=== PATIENT | female | born 1980 | race Caucasian/White ===

== ENCOUNTER 2016-08-29 17:24 | Inpatient (IN) | payer BC, OTHER ==
[~2016-08-29] VITALS: Ht 165.1 cm; Wt 72.6 kg
[2016-08-29] MEDS ORDERED: MIRALAX 17 GM POWD.PACK PO PRN (21:15)
[2016-08-29] MEDS ORDERED: ACETAMINOPHEN 325 MG TABLET PO PRN (21:15)
[2016-08-29] MEDS ORDERED: METHOCARBAMOL 750 MG TABLET PO PRN (21:15)
[2016-08-29] MEDS ORDERED: MAG HYDROX/AL HYDROX/SIMETH 30 ML LIQUID UDC PO PRN (21:15)
[2016-08-29] MEDS ORDERED: LOPERAMIDE HCL 2 MG CAPSULE PO PRN ×2 (21:15)
[2016-08-29] MEDS ORDERED: DICYCLOMINE HCL 20 MG TABLET PO PRN (21:15)
[2016-08-29] MEDS ORDERED: BUPRENORPHINE HCL 2 MG TAB.SUBL SL PRN (21:15)
[2016-08-29] MEDS ORDERED: ONDANSETRON 4 MG/2 ML VIAL IM PRN (21:15)
[2016-08-29] MEDS ORDERED: ONDANSETRON ODT 4 MG TAB.RAPDIS SL PRN (21:15)
[2016-08-29] MEDS ORDERED: MAGNESIUM HYDROXIDE 30 ML LIQUID UDC PO PRN (21:15)
[2016-08-29] MEDS ORDERED: diphenhydrAMINE 50 MG CAPSULE PO PRN (21:15)
[2016-08-29 21:30] VITALS: BP 116/56
--- NOTE | 2016-08-29 21:30 | NUR ---
PRE-ADMISSION NOTE PATIENT SEEN IN INTAKE. PATIENT ALERT AND ORIENTED X 4. VS BP-116/56 T-8.2 P-75 R-17 PA-0/10 SpO2 97% ON RA. PATIENT AMBULATORY WITH STEADY GAIT AND NO ALLERGY TO FOOD OR MEDICATIONS. ABLE TO ANSWERS QUESTIONS. WILL CONTINUE ADMISSION PROCESS
--- NOTE | 2016-08-29 21:34 | NUR ---
ADMISSION NOTE RECEIVED PATIENT IN THE UNIT AT THIS TIME. PATIENT IS A 35 YEAR OLD FEMALE WHO PRESENTS AT [facility] FOR ETOH/OPIATE/METH DEPENDENCE. HEIGHT IS 5'5 AND WEIGHT IS 160 LBS. RESPIRATION EVEN AND UNLABORED. LUNGS CLEAR AND BOWEL SOUNDS ACTIVE ON ALL 4 QUADRANT. ABDOMEN SOFT AND NON-DISTENDED. BODY CHECK DONE. SKIN INTACT. PATIENT NOTED WITH NON-PITTING EDEMA ON RIGHT LOWER LEG. PATIENT STATES SHE INJECTS HERSELF ON THAT AREA. LAST MENSTRUATION PERIOD WAS 2 WEEKS AGO. PATIENT REQUESTED TO BE FULL CODE AND REGULAR DIET. PATIENT STATES SHE RELAPSED A MONTH AGO. 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 PATIENT IS THE SOURCE OF INFORMATION. PATIENT S DRUG OF CHOICE ARE FF: 1.ALCOHOL (VODKA) SINCE AGE 12. DRINKS 8 SHOTS DAILY FOR A MONTH. LAST DRINK WAS 2 SHOTS ON 08/29/16 2.HEROIN IV-SINCE AGE 18. INJECTS 1 GRAM DAILY FOR A MONTH. LAST USE WAS 0.3 GRAM ON 08/29/16 3.METH IV-SINCE AGE 14.INJECTS GRAM DAILY FOR A MONTH. LAST USE WAS 0.1 GRAM ON 08/29/16 TREATMENT HISTORY 1.A STEP IN THE RIGHT DIRECTION IN [place]- A MONTH AGO-STAYED FOR 2 WEEKS 2.[facility] MAY 2016-STAYED FOR 9 DAYS PATIENT DOES NOT HAVE PCP. SHE STATES SHE SEES PSYCHIATRIST DR. VEGA. PATIENT REPORTS PMH OF DEPRESSION WHICH SHE TAKES ZOLOFT AND BIPOLAR WHICH SHE TAKES SEROQUEL. NO SEIZURE HISTORY. HER LONGEST PERIOD OF SOBRIETY IS 9 MONTHS , 2 YEARS AGO. PATIENT SMOKES PACK DAILY BUT SMOKES MORE WHEN IN TREATMENT. PATIENT BROUGHT HOME MEDICATION-RECONCILED. PATIENT BROUGHT AMOXICILLIN BUT STATES THAT IT'S AN OLD PRESCRIPTION FOR HER SINUS INFECTION. PATIENT APPEARS TO BE ANXIOUS AND NOTED YAWNING. PATIENT STATES NO N/V , NO TREMORS, NO SWEATING AT THIS TIME. COWS 2 AND CIWA 1. PATIENT IS PLACED ON FALL/SEIZURE PRECAUTION. WILL CALL MD AND WILL GIVE DETAIL REPORT. PATIENT ORIENTED TO SURROUNDINGS AND HOW TO USE CALL LIGHT. SAFETY MEASURES IN PLACE. CALL LIGHT IN REACH. WILL CONTINUE TO MONITOR.
[2016-08-29 21:48] LABS: *URINE HCG, QUAL NEGATIVE (NEGATIVE)
[2016-08-29 21:53] LABS: *AMPHETAMINE, URINE POSITIVE (NEGATIVE); *BARBITURATE, URINE NEGATIVE (NEGATIVE); *CANNABINOID, URINE NEGATIVE (NEGATIVE); *COCCAINE, URINE NEGATIVE (NEGATIVE); *OPIATE, URINE NEGATIVE (NEGATIVE); *PHENCYCLIDINE SCREEN,URINE NEGATIVE (NEGATIVE)
--- NOTE | 2016-08-29 22:55 | NUR ---
PRN BENADRYL ADMINISTRATION PATIENT REQUESTS FOR SLEEP AID. PRN BENADRYL GIVEN. WILL MONITOR FOR EFFECTIVENESS.
[2016-08-29] MEDS ORDERED: diphenhydrAMINE 50 MG CAPSULE ONE (23:04)
[2016-08-29] MEDS ORDERED: QUET200T PO (23:28)
[2016-08-29] MEDS ORDERED: SERT100T12 PO (23:28)
[2016-08-29] MEDS ORDERED: AMOX875T2 PO (23:28)
[2016-08-29] MEDS ORDERED: IBUP-1482 PO (23:28)
[2016-08-29 23:45] LABS: BASOPHILS # (AUTO) 0.1 K/uL (0.0-8.0); BASOPHILS % (AUTO) 1.1 % (0.0-2.0); EOSINOPHILS # (AUTO) 0.2 K/uL (0.0-0.7); EOSINOPHILS % (AUTO) 4.3 % (0.0-7.0); HEMATOCRIT 34.6 % (37-47); HEMOGLOBIN 11.6 G/DL (12.0-16.0); LYMPHOCYTES # (AUTO) 1.6 K/UL (0.8-4.8); LYMPHOCYTES % (AUTO) 33.6 % (20.5-51.5); MEAN CORPUSCULAR HEMOGLOBIN 29.3 UUG (27.0-31.0); MEAN CORPUSCULAR HGB CONC 34 g/dL (32.0-37.0); MEAN CORPUSCULAR VOLUME 87.3 FL (81.0-99.0); MONOCYTES # (AUTO) 0.4 K/UL (0.1-1.30); MONOCYTES % (AUTO) 7.7 % (0.0-11.0); NEUTROPHILS # (AUTO) 2.6 K/UL (1.8-8.9); NEUTROPHILS % (AUTO) 53.3 % (38.5-71.5); PLATELET COUNT (AUTO) 175 K/UL (150-450); RED BLOOD CELL COUNT(AUTO) 3.96 MIL/UL (4.2-5.4); WHITE BLOOD COUNT (AUTO) 4.9 K/UL (4.0-11.2)
[2016-08-29] MEDS ORDERED: LORAZEPAM 1 MG TABLET PO PRN ×2 (23:45)
[2016-08-29 23:47] LABS: ETHANOL < 3 MG/DL (0-0)
[2016-08-29 23:54] LABS: ALANINE AMINOTRANSFERASE 37 U/L (14-59); ALKALINE PHOSPHATASE 52 U/L (50-136); ASPARTATE AMINOTRANSFERASE 23 U/L (15-37); BILIRUBIN,TOTAL 0.2 mg/dL (0.2-1.0); CARBON DIOXIDE 30 mmol/L (21-32); CHLORIDE 107 mmol/L (98-107); GLUCOSE 112 mg/dL (74-106); MAGNESIUM 1.7 mg/dL (1.8-2.4); POTASSIUM 3.9 mmol/L (3.5-5.1); TOTAL PROTEIN, SERUM 7.1 g/dL (6.4-8.2); UREA NITROGEN, BLOOD 15 mg/dL (7-18)
--- NOTE | 2016-08-29 23:55 | NUR ---
DELVIS BENTON RE-ASSESSMENT PATIENT IN BED ASLEEP. RESPIRATION EVEN AND UNLABORED. NO S/S OF DISTRESS. SAFETY MEASURES IN PLACE. CALL LIGHT IN REACH. WILL CONTINUE TO MONITOR.
[2016-08-30] VITALS: BP 98/52
[2016-08-30] LABS: THYROID STIMULATING HORMONE 1.329 mIU/mL (0.358-3.740)
[2016-08-30] MEDS ORDERED: LORAZEPAM 2 MG/1 ML VIAL IM PRN (02:00)
[2016-08-30 04:00] VITALS: BP 100/52
--- NOTE | 2016-08-30 07:11 | NUR ---
END OF SHIFT NOTE PATIENT IS A 35 YEAR OLD FEMALE WHO PRESENTS AT [facility] FOR ETOH/OPIATE/METH DEPENDENCE. PRN ATIVAN/SUBUTEX AVAILABLE. SKIN INTACT. PATIENT NOTED WITH NON-PITTING EDEMA ON RIGHT LOWER LEG. PATIENT STATES SHE INJECTS HERSELF ON THAT AREA .PATIENT IS FULL CODE ,REGULAR DIET AND NO KNOWN ALLERGY. PATIENT STATES SHE RELAPSED A MONTH AGO. PATIENT S DRUG OF CHOICE ARE FF: 1.ALCOHOL (VODKA) SINCE AGE 12. DRINKS 8 SHOTS DAILY FOR A MONTH. LAST DRINK WAS 2 SHOTS ON 08/29/16 2.HEROIN IV-SINCE AGE 18. INJECTS 1 GRAM DAILY FOR A MONTH. LAST USE WAS 0.3 GRAM ON 08/29/16 3.METH IV-SINCE AGE 14.INJECTS GRAM DAILY FOR A MONTH. LAST USE WAS 0.1 GRAM ON 08/29/16 PATIENT DENIES ANY PAIN. PATIENT ANXIOUS AND NOTED YAWNING UPON ADMISSION . PATIENT COOPERATIVE. PATIENT IS PLACED ON FALL/SEIZURE PRECAUTION. SAFETY MEASURES IN PLACE. CALL LIGHT IN REACH. WILL CONTINUE TO MONITOR. PATIENT WAS GIVEN PRN BENADRYL FOR SLEEP. SLEPT 7 HOURS. FLUID INTAKE 1,156 ML. VOIDED X 3 . NO BM. LAST COWS 2 AND CIWA 1 .
--- NOTE | 2016-08-30 07:12 | NUR ---
Start of Shift Notes: Received patient in her room. Alert and verbally responsive. Oriented x 4. Able to make needs known. Respirations even and unlabored. No SOB noted. Skin warm and dry to touch. Abdomen soft and non-distended with (+) BS in all 4 quadrants. No complains of N/V/D or constipation noted. Voids independently. No complains of dysuria. Ambulatory ad ash with steady gait. Patient is a 35 year old female admitted for ETOH, and opiate dependence who was placed on PRNs at this time. Has past medical hx of depression and bipolar disorder. NKA. FULL CODE. Regular diet. On fall and seizure precautions. Educated patient on her current plan of care for the day and her medication regimen. Encouraged oral fluid intake and encouraged group participation to learn new skills to prevent relapse. Will continue to monitor closely.
[2016-08-30 08:00] VITALS: BP 109/55
[2016-08-30] MEDS: MULTIVITAMINS,THERAPEUTIC TABLET PO SCH (08:21)
--- NOTE | 2016-08-30 08:37 | NUR ---
TB not administered: Patient refused TB test at this time. Per patient, she just had one done last week. Education was provided. Notified MD Ann. Per , OK to do CXR for med clearance for active TB. Orders noted and carried out.
[2016-08-30] MEDS ORDERED: MAGNESIUM OXIDE 400 MG TABLET PO ONE (09:00)
[2016-08-30] MEDS ORDERED: TUBERCULIN,PURIF.PROT.DERIV. 5 TU/0.1 ML TEST ID ONE ×2 (09:00)
[2016-08-30] MEDS ORDERED: THIAMINE HCL 200 MG/2 ML VIAL IM ONE (09:00)
[2016-08-30] MEDS ORDERED: PNEUMOCOCCAL 23-VAL P-SAC VAC 0.5 ML VIAL IM ONE (09:00)
[2016-08-30] MEDS: SERTRALINE HCL 100 MG TABLET PO SCH (10:25)
[2016-08-30 12:00] VITALS: BP 98/47
--- NOTE | 2016-08-30 14:13 | NUR ---
Clinician encouraged client to attend groups today and advised client that this typewriter mechanic does a group at 3:30 today. Client responded that she would do her best to attend but she felt very tired.
--- NOTE | 2016-08-30 14:50 | NUR ---
Mid Shift Notes: Patient is in group. Denies any anxiety, chills, hot flashes, nervousness, muscle aches and pains. Offered support.
[2016-08-30 16:00] VITALS: BP 131/76
[2016-08-30] MEDS: HYDROXYZINE PAMOATE 25 MG CAPSULE PO PRN (17:17)
[2016-08-30] MEDS: CLONIDINE HCL 0.1 MG TABLET PO PRN (17:17)
--- NOTE | 2016-08-30 17:18 | NUR ---
Clonidine 0.1mg PO and Vistaril 25 mg PO given: COWS 5/CIWA 4. Patient presented with tremors, barely sweats, and anxiety. Medicated patient with Clonidine 0.1mg PO, and Vistaril 25 mg PO as ordered. Will monitor for effectiveness.
--- NOTE | 2016-08-30 18:18 | NUR ---
Re-assessment: Per patient, PRN Clonidine and Vistaril were effective in reducing anxiety, tremors, chills and hot flashes.
--- NOTE | 2016-08-30 18:41 | NUR ---
End of Shift Notes: Patient is a 35 year old female admitted for ETOH, and opiate dependence who was placed on PRNs at this time. Has past medical hx of depression and bipolar disorder. NKA. FULL CODE. Regular diet. On fall and seizure precautions. Prior to admission, patient was using 8 shots of Vodka daily, 1 and grams of Heroin IV and gram of meth IV. VS monitored closely q 4 hours. No significant abnormalities noted. Withdrawal symptoms were closely monitored. COWS 0, CIWA 0. Denies any complains of chills, hot flashes, muscle aches and pains, anxiety and agitation. No N/V, diarrhea or abdominal cramping noted. Per patient, she is not ready to be started on Subutex at this time, however, she also states that she is expecting to show withdrawal symptoms tonight. Last COWS 5, CIWA 4 due to tremors, anxiety and sweating. Medicated patient with Clonidine 0.1mg and Vistaril 25 mg PO as ordered with help after 1 hour. Participated in group. Complains of fatigue due to lack of sleep. Seen and examined by Dr. Ann, per MD, continue to monitor the patient q 4 hours and PRN. Seen and examined by Dr. Sinclair with NO, and reconciled patients Seroquel and Zoloft. Oral fluids encouraged. Compliant with care and treatment. PNA vaccine given to right deltoid. No adverse reactions noted. No bleeding noted on the injection site. Intake 2000cc, Voided x 6, BM x 1. All needs met and attended. Will continue to monitor closely.
--- NOTE | 2016-08-30 19:30 | NUR ---
START OF SHIFT Patient is a 35 year old female admitted for ETOH, and opiate dependency.A/O X 4,ambulates with a steady gait. PMH of depression and bipolar disorder. NKA. FULL CODE. Regular diet. On fall and seizure precautions. Last COWS 5, CIWA 4 . PO fluids encouraged as tolerated. Pt is compliant with care and treatment. All needs met and attended.All safety measures in place,bed locked in the lowest position,side rails up x 2,call light within reach. Will continue to monitor closely.
[2016-08-30 20:00] VITALS: BP 112/58
[2016-08-30] MEDS: QUETIAPINE FUMARATE 200 MG TABLET PO SCH (21:04)
[2016-08-31] VITALS: BP 91/44
[2016-08-31 04:00] VITALS: BP 100/48
--- NOTE | 2016-08-31 06:44 | NUR ---
END OF SHIFT Patient is a 35 year old female admitted for ETOH, and opiate dependency.A/O X 4,ambulates with a steady gait. PMH of depression and bipolar disorder. NKA. FULL CODE. Regular diet. On fall and seizure precautions. Last COWS 1, CIWA 1 . PO fluids encouraged as tolerated. Pt is compliant with care and treatment. No PRN meds given;slept 9 hrs,.fluid intake was 1000mls,voided x 1. All needs met and attended.All safety measures in place,bed locked in the lowest position,side rails up x 2,call light within reach. Will continue to monitor closely.
[2016-08-31 08:00] VITALS: BP 99/53
[2016-08-31] MEDS: MULTIVITAMINS,THERAPEUTIC TABLET PO SCH (09:04)
[2016-08-31] MEDS: THIAMINE HCL 100 MG TABLET PO SCH (09:04)
[2016-08-31] MEDS: CLONIDINE HCL 0.1 MG TABLET PO PRN ×2 (09:04→17:42)
[2016-08-31] MEDS: SERTRALINE HCL 100 MG TABLET PO SCH (09:04)
[2016-08-31] MEDS: FOLIC ACID 1 MG TABLET PO SCH (09:04)
[2016-08-31] MEDS: HYDROXYZINE PAMOATE 25 MG CAPSULE PO PRN (09:04)
--- NOTE | 2016-08-31 09:04 | NUR ---
Clonidine 0.1mg PO and Vistaril 25 mg PO given: Patient noted with complains of chills, hot flashes, tremors felt but not observed. Also noted with complain of anxiety. COWS 5, CIWA 4. Encouraged patient to start her taper but patient states that she is still not ready. Notified MD. Clonidine and Vistaril were given as ordered. Will monitor for effectiveness.
--- NOTE | 2016-08-31 09:57 | NUR ---
MD Communication: After MD spoke to patient, MD Ann will place the patient on a 3-day Subutex taper and PRN Ativan per CIWA score. Patient was informed and educated.
[2016-08-31] MEDS ORDERED: LORAZEPAM 1 MG TABLET PO PRN (10:00)
--- NOTE | 2016-08-31 10:04 | NUR ---
Re-assessment: Per patient, PRN Clonidine and Vistaril were minimally effective in reducing patient's anxiety, sweats, chills and hot flashes. MD Cervantes aware. Patient will be started on a 3-day Subutex taper. COWS 14/CIWA 9.
[2016-08-31] MEDS: BUPRENORPHINE HCL 2 MG TAB.SUBL SL SCH ×2 (10:14→20:28)
[2016-08-31] MEDS: LORAZEPAM 1 MG TABLET PO PRN ×2 (10:14→17:42)
--- NOTE | 2016-08-31 10:16 | NUR ---
PRN Ativan 1 mg PO given: Patient's CIWA 9. COWS 14. Medicated patient with PRN Ativan 1 mg PO per CIWA score of 9. First dose of 3-day Subutex taper initiated at this time.
--- NOTE | 2016-08-31 11:16 | NUR ---
Re-assessment: DAISY 4. Ativan 1 mg PO was effective in reducing patient's withdrawal symptoms.
[2016-08-31 12:00] VITALS: BP 110/62
[2016-08-31 14:09] LABS: HEPATITIS B SURFACE AG Negative (Negative)
[2016-08-31 16:00] VITALS: BP 107/59
[2016-08-31] MEDS: IBUPROFEN 600 MG TABLET PO PRN (17:42)
--- NOTE | 2016-08-31 17:44 | NUR ---
PRN Clonidine/Robaxin/Motrin and Ativan 1 mg PO given: CIWA 10. Patient presented with increase in anxiety, and increase in agitation. Complains of muscle aches and headache 11/03. Patient noted with sweating and facial flushing. Medicated patient with Ativan 1 mg PO, Clonidine 0.1mg PO, Robaxin 750mg PO and Motrin 400 mg PO as ordered. Will monitor for effectiveness.
--- NOTE | 2016-08-31 18:44 | NUR ---
Re-assessment: CIWA 5. Less anxiety and agitation noted. Less tremors noted. PL 3/10. PRN Robaxin, Clonidine, Motrin and Ativan PO were effective.
--- NOTE | 2016-08-31 18:45 | NUR ---
End of Shift Notes: Patient is a 35 year old female admitted for ETOH, and opiate dependence who was placed on a modified 3-day Subutex and PRN Ativan. Initial dose started at 1000 today. No adverse reactions noted. Has past medical hx of depression and bipolar disorder. NKA. FULL CODE. Regular diet. On fall and seizure precautions. Prior to admission, patient was using 8 shots of Vodka daily, 1 and grams of Heroin IV and gram of meth IV. VS monitored closely q 4 hours. No significant abnormalities noted. Withdrawal symptoms were closely monitored. COWS 14, CIWA 9 patient presented with chills, sweating, anxiety gross tremors, goose bumps, fatigue, hot flashes, anxiety and agitation. Last COWS 3, CIWA 5 . Medicated patient with Clonidine 0.1mg and Vistaril 25 mg PO as ordered at 0904 with minimal help after 1 hour. PRN Clonidine, Robaxin, Ativan and Motrin were given at 1742 due to CIWA 10 with complains of increased anxiety, agitation, headache and muscle aches with help after 1 hour. Unable to participate in group due to her withdrawal symptoms. Seen and examined by Dr. Ann and started patient on PRN Ativan and 3-day Subutex taper as ordered. Oral fluids encouraged. Compliant with care and treatment. All needs met and attended. 1500cc intake, void x 5, BM x 1. Will continue to monitor closely.
[2016-08-31 20:00] VITALS: BP 99/65
--- NOTE | 2016-08-31 20:00 | NUR ---
Start of Shift Note: Report received from day shift nurse. Pt is a 35yo female admitted on 08/29/16 for medically-supervised withdrawal from ETOH, opiates, and methamphetamine. Pt reports using 1.5gm IV heroin, drinking 8 shots vodka, and using 0.5gm IV methamphetamine daily for one month. Pt is on a 3-day Subutex taper, with PRN Ativan available for elevated CIWA score. Pt received with last COWS=4, CIWA=4, and PRN's Ativan x2, Clonidine x2, Motrin, Robaxin, and Vistaril were given during day shift. Full code, NKDA/NKFA, regular diet. Pt reports PMHx: depression, bipolar DO. Pt received in room, noted to be guarded and diaphoretic; pt reports generalized pain and anxiety. Bed is in low position and locked, side rails up x2, call light within reach. Will continue to monitor.
[2016-08-31] MEDS: QUETIAPINE FUMARATE 200 MG TABLET PO SCH (20:29)
[2016-08-31] MEDS: DICYCLOMINE HCL 20 MG TABLET PO SCH (20:29)
[2016-08-31] MEDS: BACLOFEN 10 MG TABLET PO SCH (20:29)
[2016-09-01] VITALS: BP 107/59
--- NOTE | 2016-09-01 | NUR ---
COWS/CIWA Deferred: COWS and CIWA deferred for sleep. V/S stable. All safety precautions are in place. Will continue to monitor. Addendum: 09/01/16 at 0222 by JASWINDER ALEXANDER RN Amended: Links added.
[2016-09-01 04:00] VITALS: BP 98/64
--- NOTE | 2016-09-01 04:00 | NUR ---
COWS/CIWA Deferred: COWS/CIWA assessment deferred for sleep. V/S stable. All safety precautions are in place. Will continue to monitor. Addendum: 09/01/16 at 0519 by JASWINDER ALEXANDER RN Amended: Links added.
--- NOTE | 2016-09-01 06:50 | NUR ---
End of Shift Note: Pt is a 35yo female admitted to [facility] on 08/29/16 for medically-supervised withdrawal from ETOH, opiates, and methamphetamine. Pt reports PMHx: depression, bipolar DO. Pt is a full code. Pt reports NKDA/NKFA. Pt is on a regular diet. Pt reports using 1.5gm IV heroin, drinking 8 shots vodka, and using 0.5gm IV methamphetamine daily for one month. Pt continues on a 3-day Subutex taper, with PRN Ativan available for elevated CIWA score. Scheduled medication regime effectively managed s/s of withdrawal this shift, and no PRN medications were necessary. Last COWS=6, CIWA=5 at 20:00. V/S stable throughout shift. Total fluid intake this shift: 0 ml; output: urine x 0 and BM x 0. Pt is currently in bed, and slept 11 hours this shift. All needs have been attended and met. Pt endorsed to day shift nurse.
--- NOTE | 2016-09-01 07:02 | NUR ---
Start of Shift Notes: Received patient in her room. Alert and verbally responsive. Oriented x 4. Able to make needs known. Respirations even and unlabored. No SOB noted. Skin warm and dry to touch. Abdomen soft and non-distended with (+) BS in all 4 quadrants. No complains of N/V/D or constipation noted. Voids independently. No complains of dysuria. Ambulatory ad ash with steady gait. Patient is a 35 year old female admitted for ETOH, and opiate dependence who was started on a modified 3-day Subutex taper and PRN Ativan. Slept for 11 hours. No acute changes noted. Has past medical hx of depression and bipolar disorder. NKA. FULL CODE. Regular diet. On fall and seizure precautions. Educated patient on her current plan of care for the day and her medication regimen. Encouraged oral fluid intake and encouraged group participation to learn new skills to prevent relapse. Will continue to monitor closely.
[2016-09-01 08:00] VITALS: BP 117/53
[2016-09-01] MEDS: BACLOFEN 10 MG TABLET PO SCH ×3 (08:42→20:43)
[2016-09-01] MEDS: MULTIVITAMINS,THERAPEUTIC TABLET PO SCH (08:42)
[2016-09-01] MEDS: SERTRALINE HCL 100 MG TABLET PO SCH (08:42)
[2016-09-01] MEDS: THIAMINE HCL 100 MG TABLET PO SCH (08:42)
[2016-09-01] MEDS: FOLIC ACID 1 MG TABLET PO SCH (08:42)
[2016-09-01] MEDS: DICYCLOMINE HCL 20 MG TABLET PO SCH ×3 (08:42→20:43)
[2016-09-01] MEDS ORDERED: BUPRENORPHINE HCL 2 MG TAB.SUBL SL SCH (09:00)
[2016-09-01 12:00] VITALS: BP 108/62
--- NOTE | 2016-09-01 12:23 | NUR ---
Subutex taper discontinued: Patient's taper discontinued per MD, patient verbalized good understanding and will comply.
[2016-09-01 14:48] LABS: *AMPHETAMINE, URINE POSITIVE (NEGATIVE); *BARBITURATE, URINE NEGATIVE (NEGATIVE); *CANNABINOID, URINE NEGATIVE (NEGATIVE); *COCCAINE, URINE NEGATIVE (NEGATIVE); *OPIATE, URINE NEGATIVE (NEGATIVE); *PHENCYCLIDINE SCREEN,URINE NEGATIVE (NEGATIVE)
[2016-09-01 16:00] VITALS: BP 100/56
--- NOTE | 2016-09-01 18:47 | NUR ---
End of Shift Notes: Patient is a 35 year old female admitted for ETOH, and opiate dependence who was placed on a modified 3-day Subutex and PRN Ativan. But has been discontinued by MD. No adverse reactions noted. Patient with discharge plans for tomorrow. UDS in and resulted. Has past medical hx of depression and bipolar disorder. NKA. FULL CODE. Regular diet. On fall and seizure precautions. Prior to admission, patient was using 8 shots of Vodka daily, 1 and grams of Heroin IV and gram of meth IV. VS monitored closely q 4 hours. No significant abnormalities noted. Withdrawal symptoms were closely monitored. COWS 7, CIWA 4 patient presented with chills, sweating, anxiety gross tremors, fatigue, hot flashes, anxiety and agitation. Last COWS 3, CIWA 3. Unable to participate in group due to her withdrawal symptoms. Oral fluids encouraged. Compliant with care and treatment. All needs met and attended. Will continue to monitor closely.
[2016-09-01] MEDS: HYDROXYZINE PAMOATE 25 MG CAPSULE PO PRN (19:32)
[2016-09-01] MEDS: CLONIDINE HCL 0.1 MG TABLET PO PRN (19:32)
--- NOTE | 2016-09-01 19:40 | NUR ---
PRN's Motrin, Vistaril, and Clonidine: Patient complains of severe anxiety. Administered PRN Clonidine and PRN Vistaril as ordered. Patient complains of 6/10 pain in legs and back. Administered PRN Motrin as ordered. Will continue to monitor.
[2016-09-01] MEDS: IBUPROFEN 600 MG TABLET PO PRN (19:46)
[2016-09-01 20:00] VITALS: BP 109/61
--- NOTE | 2016-09-01 20:00 | NUR ---
Start of Shift Note: Report received from day shift nurse. Pt is a 35 Y/O female admitted on 08/29/16 for medically-supervised withdrawal from opiates, ETOH, and methamphetamine. Pt reports using IV heroin 1.5gm/day, drinking 8 shots vodka/day, and using IV methamphetamine 0.5gm/day for one month. Pt has completed a Subutex taper and is to discharge tomorrow. Pt received with last COWS=3, CIWA=3, and no PRN's were given during day shift. Pt is a full code. Pt reports NKDA/NKFA. Pt is on a regular diet. Pt reports PMHx: depression, bipolar DO. Pt received in room, reports pain in back and legs and anxiety. Bed is in low position and locked, side rails up x2, call light within reach. Will continue to monitor.
--- NOTE | 2016-09-01 20:40 | NUR ---
PRN Reassessment: Patient verbalizes a reduction of anxiety to a manageable level. PRN Clonidine and PRN Vistaril effective. Patient denies pain at this time. PRN Motrin effective. Will continue to monitor.
[2016-09-01] MEDS: QUETIAPINE FUMARATE 200 MG TABLET PO SCH (20:43)
[2016-09-02] VITALS: BP 97/41
--- NOTE | 2016-09-02 | NUR ---
COWS/CIWA Deferred: COWS and CIWA deferred for sleep. V/S stable. All safety precautions are in place. Will continue to monitor. Addendum: 09/02/16 at 0158 by JASWINDER ALEXANDER RN Amended: Links added.
[2016-09-02 04:00] VITALS: BP 106/63
--- NOTE | 2016-09-02 04:00 | NUR ---
COWS, CIWA Deferred: COWS and CIWA deferred for sleep, V/S stable. Bed in lowest position, side rails up x2, call light within reach. Will continue to monitor. Addendum: 09/02/16 at 0534 by JASWINDER ALEXANDER RN Amended: Links added.
--- NOTE | 2016-09-02 07:12 | NUR ---
End of Shift Note: Pt is a 35 Y/O female admitted to [facility] on 08/29/16 for medically-supervised withdrawal from opiates, ETOH, and methamphetamine. PMHx: depression, bipolar DO. Full code, NKDA/NKFA, regular diet. Pt reports using 1.5gm IV heroin, drinking 8 shots vodka, and using 0.5gm IV methamphetamine daily for one month. Pt completed a Subutex taper and is to discharge today. Scheduled medication regime effectively managed s/s of withdrawal this shift, in addition to PRN clonidine and PRN Vistaril for anxiety, and PRN Motrin for pain. Last COWS=4, CIWA=4 at 20:00. V/S stable throughout shift. Total fluid intake this shift: 1591 ml; output: urine x 3 and BM x 0. Pt is currently in bed, and slept 8 hours this shift. All needs have been attended and met. Pt endorsed to day shift nurse.
--- NOTE | 2016-09-02 07:20 | NUR ---
Start of shift note SBAR report rcv'd. Pt was admitted for ETOH and opiate dependence and methamphetamine abuse. Pt has a PMHx of depression and bipolar d/o. Pt has completed a subutex taper without any ASE. Pt is scheduled to discharge today. Pt has no complaints. All needs addressed at this time. Will continue to monitor pt.
[2016-09-02 08:00] VITALS: BP 96/54
[2016-09-02] MEDS ORDERED: BUPRENORPHINE HCL 2 MG TAB.SUBL SL SCH (09:00)
[2016-09-02] MEDS: MULTIVITAMINS,THERAPEUTIC TABLET PO SCH (09:03)
[2016-09-02] MEDS: DICYCLOMINE HCL 20 MG TABLET PO SCH (09:03)
[2016-09-02] MEDS: SERTRALINE HCL 100 MG TABLET PO SCH (09:03)
[2016-09-02] MEDS: FOLIC ACID 1 MG TABLET PO SCH (09:03)
[2016-09-02] MEDS: THIAMINE HCL 100 MG TABLET PO SCH (09:03)
[2016-09-02] MEDS: BACLOFEN 10 MG TABLET PO SCH (09:03)
[2016-09-02] MEDS ORDERED: BACL10TA PO (09:08)
[2016-09-02] MEDS ORDERED: IBUP-1955 PO (09:08)
[2016-09-02] MEDS ORDERED: DICY20TA28 PO (09:08)
[2016-09-02] MEDS ORDERED: HYDR-3895 PO (09:08)
--- NOTE | 2016-09-02 09:50 | NUR ---
Discharge note Pt was admitted for etoh, opiate dependence. Pt has a COWS of 4 CIWA of 3. Pt states that she feels ready for discharge. VS are WNL. LBM was 09/01/16. Pt denies SI/HI. Pt verbalized her understanding of the discharge instructions. All needs addressed at this time. Medications, prescriptions, discharge instructions and all belongings returned to pt. Pt ID band removed, pt ambulated off of unit with PREVOCATIONAL/REHABILITATION COUNSELOR, left facility via [facility] for [place].
== END 2016-09-02 09:50 | disposition home or self-care (01) | DRG 895 ==
LOC: SRC 20:47 → EDSEX 20:47
PROVIDERS: ADMIT Internal Medicine; ATTEND Internal Medicine
PROC: HZ2ZZZZ Detoxification Services for Substance Abuse Treatment (ICD-10-PCS; principal; 2016-08-29)
PROC: HZ31ZZZ Individual Counseling for Substance Abuse Treatment, Behavioral (ICD-10-PCS; 2016-08-30)
PROC: HZ41ZZZ Group Counseling for Substance Abuse Treatment, Behavioral (ICD-10-PCS; 2016-09-01)
DX: F10.230 Alcohol dependence with withdrawal, uncomplicated (principal); F15.20 Other stimulant dependence, uncomplicated; F31.32 Bipolar disorder, current episode depressed, moderate; F11.23 Opioid dependence with withdrawal; Y90.9 Presence of alcohol in blood, level not specified; Z81.8 Family history of other mental and behavioral disorders; Z82.49 Family history of ischemic heart disease and other diseases of the circulatory system; Z81.3 Family history of other psychoactive substance abuse and dependence; F17.210 Nicotine dependence, cigarettes, uncomplicated; E83.42 Hypomagnesemia; D64.9 Anemia, unspecified; Z79.899 Other long term (current) drug therapy
CPT/HCPCS: 36415; 70030-TC; 71010; 80307; 83735; 84443; 84703; 85025; 86580; 86592; 86705; 86803; 87340; 87806; 90732; A4663; G0480; J3411; Q0163